=== PATIENT | female | born 1990 | race Caucasian/White ===

== ENCOUNTER 2023-10-10 10:23 | Day surgery (SDC) | payer BC ==
--- NOTE | 2023-10-10 09:08 | HP ---
DATE OF SURGERY: 10/10/2023 HISTORY OF PRESENT ILLNESS: The patient is a 33-year-old with cyst in shoulder area in need of excision. PAST MEDICAL HISTORY: Depression, heartburn, diabetes type II, hypothyroidism, reflux. PAST SURGICAL HISTORY: sections x2. MEDICATIONS: Clomipramine, probiotic, magnesium, levothyroxine, pantoprazole, duloxetine, guanfacine, Farxiga. ALLERGIES: ERYTHROMYCIN. FAMILY HISTORY: Diabetes, hypertension. SOCIAL HISTORY: No smoking or alcohol abuse. REVIEW OF SYSTEMS: Twelve systems reviewed. No chest pain or palpitations. Otherwise pertinent for multiple medical problems as noted above and per preadmission questionnaire. PHYSICAL EXAMINATION: Height 5 feet 4 inches. BMI 44.6. GENERAL: No acute distress. HEENT: Sclerae nonicteric. EOMI. Oral mucous membranes moist. NECK: No JVD. CHEST: Equal excursion, nonlabored breathing. CVS: Regular rate and rhythm. ABDOMEN: Soft. EXTREMITIES: No cyanosis or edema. NEURO: Alert, oriented, moving extremities symmetrically. PSYCH: Appropriate mood and affect. SKIN: Dry. Left shoulder area cyst or nodule. IMPRESSION: Recurring cyst or nodule left shoulder area. I recommend excision. Risk of bleeding or infection, wound dehiscence possibly requiring packing. Risk of hematoma or seroma, risk of pain, burning or numbness. Risk of anesthesia, deep venous thrombosis, pulmonary embolism, pneumonia but not limited to. What we excise will not recur but she could get similar cyst or nodule adjacent to or elsewhere. Will proceed with excisional biopsy of shoulder cyst or nodule as an outpatient under general anesthetic. Otherwise, continue medication for reflux, hypothyroidism and diabetes.
[2023-10-10] MEDS: Lactated Ringers 1,000 ML IV SCH (10:41)
[2023-10-10] MEDS ORDERED: CEFAZOLIN 2 GM-D5W BAG** 2 GM/50 ML ML IV ONE (10:44)
[2023-10-10 10:51] LABS: HCG URINE TEST NEGATIVE (NEGATIVE)
[2023-10-10] MEDS: CEFAZOLIN 2 GM-D5W BAG** 2 GM/50 ML ML IV SCH (10:51)
[2023-10-10] MEDS ORDERED: Xylocaine-Mpf 2% 5 Ml Vial ONE (12:15)
[2023-10-10] MEDS ORDERED: Decadron 4 MG INJ ONE (12:15)
[2023-10-10] MEDS ORDERED: SUBLIMAZE 100 MCG/2 ML ONE (12:15)
[2023-10-10] MEDS ORDERED: DIPRIVAN 200 MG/20 ML IV ONE (12:15)
[2023-10-10] MEDS ORDERED: Versed 2 MG/2 ML Injection ONE (12:15)
[2023-10-10] MEDS ORDERED: Zofran 4 MG/2 ML VIAL ONE (12:15)
[2023-10-10] MEDS ORDERED: Sensorcaine 0.25% 10 ML ONE (12:34)
[2023-10-10] MEDS ORDERED: TORAdol 30 mg Injection ONE (13:51)
[2023-10-10 14:16] VITALS: RESP 18; O2SAT 98
[2023-10-10] MEDS ORDERED: NORCO 5/325 MG ONE (14:27)
[2023-10-10] MEDS: NORCO 5/325 MG PO PRN (14:27)
[2023-10-10 14:39] VITALS: BP 122/88; PULSE 73; TEMP 97.6
--- NOTE | 2023-10-11 09:06 | OP ---
SURGERY DATE/TIME: 10/10/2023 1223 PREOPERATIVE DIAGNOSIS: Persistent cyst site right shoulder/upper back area. POSTOPERATIVE DIAGNOSIS: Persistent cyst site right shoulder/upper back area. PROCEDURE: Excisional biopsy of right shoulder cyst (approximately 2.5 cm). SURGEON: Mckinley Jarvis M.D. ANESTHESIA: General. QUANTITATIVE BLOOD LOSS: Minimal. INDICATIONS: As noted above, consent obtained. The site was marked in the preoperative holding area. DESCRIPTION OF PROCEDURE AND FINDINGS: She was taken to the operating room. General anesthesia induced. In lateral position, appropriate padding and positioned per anesthesia and OR staff. She is prepped and draped in usual sterile fashion. After official time out and no disagreement with planned procedure, marking out a spindle-shaped segment of the skin overlying this indurated cyst site. Dissection carried down to normal appearing deep to this indurated area and carefully passed off, dissecting off the underlying deep subcu. It measured about 2.5 cm with margins and passed off for pathology. Hemostasis controlled with pinpoint cautery. Good hemostasis noted. The wound was clean enough to allow closure. Flaps are then mobilized on either side and mobilized back to the midline with interrupted 3-0 Vicryl closing the deep and superficial subcu. Skin closed with 4-0 Vicryl. Interrupted 3-0 Prolene used to reinforce the area given the location on the back. Steri-Strips and sterile dressing applied. 0.25% Marcaine local injected along the area. The patient tolerated the procedure well. There were no immediate complications. Findings discussed with the family out in the waiting area.
== END 2023-10-10 14:43 | disposition home or self-care (01) ==
LOC: SDC 10:23
PROVIDERS: ATTEND Surgery
DX: L72.0 Epidermal cyst (principal); E11.9 Type 2 diabetes mellitus without complications
CPT/HCPCS: 81025; 82947; J0690; J1100; J1885; J2250; J2405; J2704; J3010; A9270-GY